=== PATIENT | female | born 1960 ===

== ENCOUNTER 2017-03-28 06:41 | Day surgery (SDC) | payer BC ==
[2017-03-28 07:08] VITALS: BMI 26.4
[2017-03-28] MEDS ORDERED: Lactated Ringer's 500 ML IV ONE (08:44)
[2017-03-28] MEDS ORDERED: Propofol 10 mg/ml Inj (20 ML) ONE (09:33)
[2017-03-28] MEDS ORDERED: Midazolam 2 MG/2 ML VIAL ONE (09:33)
[2017-03-28] MEDS ORDERED: Lactated Ringer's 500 ML IV SCH (09:45)
[2017-03-28 10:52] VITALS: RESP 13; TEMP 97.1; O2SAT 99
[2017-03-28 11:21] VITALS: BP 136/88; PULSE 69
== END 2017-03-28 11:15 | disposition home or self-care (01) ==
LOC: C.ENDO 06:41
PROVIDERS: ATTEND Internal Medicine Gastroenterology
DX: K21.9 Gastro-esophageal reflux disease without esophagitis (principal); K29.70 Gastritis, unspecified, without bleeding; K29.80 Duodenitis without bleeding; K64.8 Other hemorrhoids
CPT/HCPCS: 43239; 45378; 88305; J2250; J2704; J7120